=== PATIENT | female | born 1940 | race Caucasian/White ===

== ENCOUNTER 2024-12-30 07:00 | Day surgery (SDC) | payer MEDICARE, BC ==
[~2024-12-30 07:00] MED LIST: Acetaminophen 325 MG Tab PO ONE; Dexamethasone 4 MG/ML 5 ML MDV ONE; Lidocaine 1% 5 ML VIAL ONE; Ondansetron 4 MG/2 ML SDV ONE; Rocuronium 50 MG/5 ML Vial ONE; Sodium Chloride 0.9% 10 ML Syringe FLUSH PRN; Sodium Chloride 0.9% 10 ML Syringe FLUSH SCH; dexmedeTOMIDine HCl 200 MCG/2 ML SDV ONE; fentaNYL 250 MCG/5 ML SDV ONE; propofoL 500 MG/50 ML 50 ML ONE
[2024-12-30] MEDS: Lactated Ringers 1,000 ML IV SCH (07:10)
[2024-12-30] MEDS ORDERED: Phenylephrine 1% 10 MG/ML SDV ONE (07:22)
[2024-12-30] MEDS ORDERED: ePHEDrine 50 MG/ML SDV ONE (07:59)
[2024-12-30] MEDS ORDERED: ceFAZolin 2 GM Vial ONE (07:59)
[2024-12-30] MEDS ORDERED: propofoL 500 MG/50 ML 50 ML ONE ×2 (08:36→09:32)
[2024-12-30] MEDS ORDERED: Sugammadex Sodium 200 MG/2 ML VIAL IV ONE (09:50)
[2024-12-30] MEDS ORDERED: fentaNYL 100 MCG/2 ML SDV IVPUSH PRN (10:15)
[2024-12-30] MEDS ORDERED: Ondansetron 4 MG/2 ML SDV IVPUSH PRN (10:15)
[2024-12-30] MEDS: Bupivacaine 0.25% 10 ML SDV ONE ×2 (10:37→10:38)
[2024-12-30] MEDS: EPINEPHrine 1 MG/ML SDV ONE (10:39)
[2024-12-30] MEDS: oxyCODONE 5 MG Tab PO PRN (13:02)
== END 2024-12-30 13:25 ==
LOC: JD.SDS 07:00
PROVIDERS: ATTEND Obstetrics & Gynecology
DX: D25.2 Subserosal leiomyoma of uterus (principal); N81.10 Cystocele, unspecified; N39.3 Stress incontinence (female) (male); N81.6 Rectocele; I10 Essential (primary) hypertension; E78.00 Pure hypercholesterolemia, unspecified; I25.10 Atherosclerotic heart disease of native coronary artery without angina pectoris; Z95.5 Presence of coronary angioplasty implant and graft; Z79.899 Other long term (current) drug therapy
CPT/HCPCS: 36415; 57240; 57288; 58260; 86850; 86900; 86901; A9270; J0171; J0665; J0690; J1100; J2003; J2371; J2405; J2704; J3010; J7120; J3490